=== PATIENT | female | born 1965 | race Caucasian/White ===

== ENCOUNTER → 2017-07-04 | Outpatient (CLI) | payer OTHER ==
[~2017-07-04] MED LIST: CHOL500045 PO; LEVO112T44 PO; LISI-362 PO; OMEP-125 PO
== END ==
LOC: LAB 08:45
PROVIDERS: ATTEND Nurse Practitioner Family
DX: R30.0 Dysuria (principal); R35.0 Frequency of micturition; R82.99 Other abnormal findings in urine
CPT/HCPCS: 81001; 87088

== ENCOUNTER → 2017-07-21 | Outpatient (REF) ==
[2017-07-21 09:42] LABS: LDL CHOLESTEROL 83 mg/dl
== END ==
DX: Z02.9 Encounter for administrative examinations, unspecified (principal)

== ENCOUNTER → 2017-08-21 | Outpatient (REF) | payer OTHER | PROVIDERS: ATTEND Family Medicine | DX: N39.0 Urinary tract infection, site not specified (principal) | CPT/HCPCS: 87088 ==

== ENCOUNTER → 2017-10-18 | Outpatient (REF) | payer OTHER | LOC: ZZSENDIN 16:51 | PROVIDERS: ATTEND Nurse Practitioner Family | DX: L82.1 Other seborrheic keratosis (principal) | CPT/HCPCS: 88305 ==

== ENCOUNTER → 2017-12-21 | Outpatient (CLI) | payer OTHER | LOC: LAB 09:49 | PROVIDERS: ATTEND Nurse Practitioner Family | DX: R35.0 Frequency of micturition (principal); R39.11 Hesitancy of micturition; R30.0 Dysuria; R82.79 Other abnormal findings on microbiological examination of urine | CPT/HCPCS: 81001; 87088 ==

== ENCOUNTER → 2018-01-03 | Outpatient (CLI) | payer OTHER ==
[~2018-01-03] MED LIST changes: +NITR-57 PO
--- NOTE | 2018-01-03 09:50 | RADIOLOGY IMAGING REPORT ---
FACILITY: [facility] [place] PATIENT NAME: Jeimy Apodaca : 1965 MR: [id number] V: [id number] EXAM DATE: ORDERING PHYSICIAN: CATARINA LANZA TECHNOLOGIST: Location: [facility] [place] Patient: Jeimy Apodaca : 1965 Visit/Account:[id number] Date of Sevice: 01/03/2018 KIDNEYS HISTORY: Frequent urinary tract infections COMPARISON: None. FINDINGS: Kidneys: Right kidney- 10.8 cm in length with normal parenchymal thickness and echogenicity. Resistive index is normal, 0.70. Left kidney- 10.9 cm in length with normal parenchymal thickness and echogenicity. Resistive index i s normal, 0.62. Uniform and symmetric blood flow in each kidney by Doppler ultrasound. Hydronephrosis: None. Bladder: Normal. Prevoid volume 529 mL, postvoid volume 31 mL.. Abdominal aorta and IVC: Patent by Doppler ultrasound. IMPRESSION: Normal renal ultrasound. Report Dictated By: Imtiaz Hernandez at 01/03/2018 9:44 AM Report E-Signed By: Imtiaz Hernandez at 01/03/2018 9:46 AM WSN:[email or web address]
== END ==
LOC: US 00:46
PROVIDERS: ATTEND Urology
DX: N39.0 Urinary tract infection, site not specified (principal)
CPT/HCPCS: 76705

== ENCOUNTER → 2018-01-18 | Outpatient (CLI) | payer OTHER ==
[2018-01-18 10:04] LABS: LDL CHOLESTEROL 91 mg/dl
== END ==
LOC: LAB 08:32
PROVIDERS: ATTEND Nurse Practitioner Family
DX: Z00.00 Encounter for general adult medical examination without abnormal findings (principal); N95.9 Unspecified menopausal and perimenopausal disorder; E55.9 Vitamin D deficiency, unspecified; R73.01 Impaired fasting glucose
CPT/HCPCS: 36415; 82040; 82247; 82306; 82310; 82374; 82435; 82465; 82565; 82607; 82670; 82947; 83001; 83036; 83718; 84075; 84132; 84155; 84295; 84403; 84443; 84450; 84460; 84478; 84520; 85027

== ENCOUNTER → 2018-01-19 | Outpatient (CLI) | payer OTHER ==
[~2018-01-19] MED LIST changes: +BARIUM SULFATE 176 GM BTL PO ONE; +BARIUM SULFATE 340 GM POWD ONE
--- NOTE | 2018-01-19 11:45 | RADIOLOGY IMAGING REPORT ---
FACILITY: [facility] PATIENT NAME: Jeimy Apodaca : 1965 MR: [id number] V: [id number] EXAM DATE: ORDERING PHYSICIAN: LAURY MCKEE TECHNOLOGIST: Location: [facility] Patient: Jeimy Apodaca : 1965 Visit/Account:[id number] Date of Sevice: 01/19/2018 ESOPHAGRAM HISTORY: Heartburn. Patient has been on Prilosec for 15 years. Food has gotten temporarily stuck s everal times COMPARISON: None. FINDINGS: Single and double contrast esophagram were performed. The esophagus is normal in appearance. There is no evidence of focal strictures or hiatal hernia. I was unable to demonstrate gastroesophageal re flux during the study despite utilizing provocative maneuvers. Barium tablet passed without hesitati on of the stomach Fluoroscopy time: 0.6 minutes Dose: DAP: 317 microGy-m2 IMPRESSION: Normal esophagram Report Dictated By: Sukumar Stanley MD at 01/19/2018 11:38 AM Report E-Signed By: Sukumar Stanley MD at 01/19/2018 11:41 AM WSN:[email or web address]
== END ==
LOC: RAD 01:30
PROVIDERS: ATTEND Surgery
DX: R13.10 Dysphagia, unspecified (principal)
CPT/HCPCS: 74220

== ENCOUNTER 2018-02-14 10:57 | Outpatient (RCR) | payer OTHER ==
[~2018-02-14 10:57] MED LIST changes: -BARIUM SULFATE 176 GM BTL PO ONE; -BARIUM SULFATE 340 GM POWD ONE
--- NOTE | 2018-02-20 10:46 | RADIOLOGY IMAGING REPORT ---
FACILITY: [facility] PATIENT NAME: Jeimy Apodaca : 1965 MR: [id number] V: [id number] EXAM DATE: ORDERING PHYSICIAN: CJ FARLEY TECHNOLOGIST: [facility] Patient: Jeimy Apodaca : 1965 Visit/Account:[id number] Date of Sevice: 02/20/2018 PELVIC HISTORY: Premenopausal interossea TECHNIQUE: Transvaginal and transabdominal ultrasound pelvis. COMPARISON: None. FINDINGS: Uterus: ; 11.9 cm length x 4.6 cm AP x 6.4 cm transverse. Myometrium: There is a 3.4 cm posterior fibroid. Endometrium: Unremarkable; double thickness 7.8 mm. Cervix: Nabothian cysts. Ovaries: Right - not visualized Left - not visualized Adnexa: Grossly unremarkable. Free pelvic fluid: None. IMPRESSION: There is a 3.4 cm posterior fibroid Nabothian cysts Neither ovary visualized Report Dictated By: Yin Mosher MD at 02/20/2018 10:38 AM Report E-Signed By: Yin Mosher MD at 02/20/2018 10:41 AM WSN:[email or web address]
== END 2018-02-20 18:00 | disposition home or self-care (01) ==
LOC: US 10:57
PROVIDERS: ATTEND Nurse Practitioner Family
DX: D25.9 Leiomyoma of uterus, unspecified (principal); N88.8 Other specified noninflammatory disorders of cervix uteri
CPT/HCPCS: 36415; 76856; 82728

== ENCOUNTER 2018-02-22 01:07 | Day surgery (SDC) | payer OTHER ==
[~2018-02-22] VITALS: Ht 179.1 cm; Wt 97.1 kg
[2018-02-22] MEDS ORDERED: PROPOFOL EMUL(*) 10MG/ML 20 ML 20 ML ONE ×2 (07:04→09:40)
[2018-02-22 09:24] VITALS: BP 155/85
[2018-02-22] MEDS ORDERED: NORMOSOL R SOLN(*) 1000 ML BAG 1,000 ML IV PRN (09:40)
[2018-02-22] MEDS ORDERED: LIDOCAINE/SOD BICARB 8.4% SYR ID ONE (09:40)
[2018-02-22 10:12] VITALS: BP 118/79
--- NOTE | 2018-02-22 10:16 | Short(Outpt) Discharge Summary ---
Discharge Summary Reason for Hosp/Final Diag: (1) GERD (gastroesophageal reflux disease) Status: Chronic Hospital Course & Plan: EGD and colonoscopy were completed without problems. (2) Colon cancer screening Status: Chronic Departure Discharge to: Home, Self Care Discharge Instructions Home Meds Reported Medications Cholecalciferol (Vitamin D3) (VITAMIN D) 5,000 Unit Tablet, 5000 UNIT PO QDAY 03/01/17 Omeprazole (OMEPRAZOLE) 20 Mg Capsule.dr, 1 CAP PO QDAY, CAP 03/01/17 Levothyroxine Sodium (SYNTHROID) 112 Mcg Tablet, 112 MCG PO QDAY, TAB 03/01/17 Diet: Regular Activity: As Tolerated Special Instructions: Your upper endoscopy and colonoscopy were completed without any problems and your bowel prep was excellent (Good Job!!). I didn't find any inflammation, ulcers, cancers, or precancerous lesions in your upper GI tract or your colon. These were normal. I recommend that you undergo another colonoscopy for screening in 10 years. Problem Qualifiers (1) GERD (gastroesophageal reflux disease): Esophagitis presence: without esophagitis Qualified Codes: K21.9 - Gastro- esophageal reflux disease without esophagitis LAURY MCKEE MD Feb 22, 2018 10:16
[2018-02-22 10:30] VITALS: BP 130/85
[2018-02-22 10:45] VITALS: BP 119/78
[2018-02-22 10:52] VITALS: BP 126/79
[2018-02-22 10:53] VITALS: BP 126/84
== END 2018-02-22 11:03 | disposition home or self-care (01) ==
LOC: OR 01:07
PROVIDERS: ATTEND Surgery
DX: Z12.11 Encounter for screening for malignant neoplasm of colon (principal); K21.9 Gastro-esophageal reflux disease without esophagitis
CPT/HCPCS: 00813; 43235; 81025; G0121; J2704

== ENCOUNTER → 2018-06-08 | Outpatient (REF) ==
[~2018-06-08] MED LIST changes: +CYAN500T38 PO; +FERR160T25 PO; +FLUC150T40 PO; +SENN-187 PO
[2018-06-08 10:06] LABS: LDL CHOLESTEROL 90 mg/dl
== END ==
DX: Z02.9 Encounter for administrative examinations, unspecified (principal)

== ENCOUNTER → 2018-06-08 | Outpatient (CLI) | payer OTHER | LOC: LAB 09:33 | PROVIDERS: ATTEND Nurse Practitioner Family | DX: R53.81 Other malaise (principal); E87.8 Other disorders of electrolyte and fluid balance, not elsewhere classified; D50.9 Iron deficiency anemia, unspecified | CPT/HCPCS: 82728 ==

== ENCOUNTER → 2018-06-20 | Outpatient (CLI) | payer OTHER ==
--- NOTE | 2018-06-29 08:23 | RADIOLOGY IMAGING REPORT ---
FACILITY: [facility] PATIENT NAME: CLARISSA MALIK : [id number] MR: [id number] V: [id number] EXAM DATE: [id number] ORDERING PHYSICIAN: CJ FARLEY TECHNOLOGIST: Yolie Barakat PROCEDURE:BILATERAL DIGITAL SCREENING MAMMOGRAM WITH CAD ASSISTED INTERPRETATION & 3D TOMOSYNTHESIS COMPARISON:Prior mammograms 12/16/16, 08/28/15, 07/11/14. INDICATIONS:screening FINDINGS: The breasts are heterogeneously dense which can obscure small masses. The previous bilateral breast implants have been removed sense the prior mammograms. There has been an overall slight increase in breast density when compared to the prior studies. There appears to be mild nipple retraction on the Right not appreciated previously. This could be related to postsurgical changes however Spot compression view is recommended. DIAGNOSTIC CATEGORY 0--INCOMPLETE: NEED ADDITIONAL IMAGING EVALUATION. RECOMMENDATIONS: ADDITIONAL MAMMOGRAPHIC VIEWS REQUIRED: RIGHT BREAST. IMPRESSION: BIRADS 0: Incomplete. Additional views of the Right breast recommended. Dictated by: Yin Mosher M.D. on 06/27/2018 at 15:35 Transcribed by: CHRISTIAN on 06/28/2018 at 8:19 Approved by: Yin Mosher M.D. on 06/29/2018 at 8:22 [facility]
== END ==
LOC: MAMO 01:06
PROVIDERS: ATTEND Nurse Practitioner Family
DX: R92.8 Other abnormal and inconclusive findings on diagnostic imaging of breast (principal)
CPT/HCPCS: 77063; 77067

== ENCOUNTER → 2018-07-06 | Outpatient (CLI) | payer OTHER ==
--- NOTE | 2018-07-07 11:27 | RADIOLOGY IMAGING REPORT ---
FACILITY: [facility] - [place], [place] PATIENT NAME: CLARISSA MALIK : [id number] MR: [id number] V: [id number] EXAM DATE: [id number] ORDERING PHYSICIAN: CJ FARLEY TECHNOLOGIST: Yolie Barakat PROCEDURE:RIGHT DIGITAL DIAGNOSTIC MAMMOGRAM WITH CAD ASSISTED INTERPRETATION & 3D TOMOSYNTHESIS COMPARISON:Prior mammograms dated 06/20/18 INDICATIONS:FURTHER EVAL FINDINGS: Patient returns for spot compression views in the Right CC & MLO projections. There appears to be less retraction in the Right retroareolar breast. By history the patient has a large amount of scar tissue from reconstructive surgery following implant removal which likely accounts for this finding. DIAGNOSTIC CATEGORY 2--BENIGN FINDING. RECOMMENDATIONS: ROUTINE MAMMOGRAM AND CLINICAL EVALUATION. IMPRESSION: BIRADS 2: Benign finding. There is less Right nipple retraction on the spot compression views. By history the patient has a large amount of scar tissue in this location which likely accounts for the finding. Dictated by: Yin Mosher M.D. on 07/06/2018 at 17:42 Transcribed by: QUIQUE on 07/07/2018 at 10:52 Approved by: Yin Mosher M.D. on 07/07/2018 at 11:26 [facility]
== END ==
LOC: MAMO 00:55
PROVIDERS: ATTEND Nurse Practitioner Family
DX: R92.8 Other abnormal and inconclusive findings on diagnostic imaging of breast (principal)
CPT/HCPCS: 77061; 77065

== ENCOUNTER → 2018-07-11 | Outpatient (CLI) | payer OTHER | LOC: US 01:26 | PROVIDERS: ATTEND Nurse Practitioner Family | DX: R07.89 Other chest pain (principal) | CPT/HCPCS: 93017; 93350 ==

== ENCOUNTER → 2018-07-28 | Outpatient (CLI) | payer OTHER ==
--- NOTE | 2018-07-28 18:22 | RADIOLOGY IMAGING REPORT ---
FACILITY: [facility] [place] PATIENT NAME: Jeimy Apodaca : 1965 MR: [id number] V: [id number] EXAM DATE: ORDERING PHYSICIAN: CJ FARLEY TECHNOLOGIST: Location: [facility] Patient: Jeimy Apodaca : 1965 Visit/Account:[id number] Date of Sevice: 07/28/2018 CHEST HISTORY: Palpable abnormality distal sternum Additional history: None COMPARISON: None. FINDINGS: Ultrasound over the area of concern the xiphoid process demonstrates a hypoechoic oval mass subjacent to the dermis which is wider than tall measuring 7 x 5 x 5 mm. There is a subtle tract which extends off the inferior margin of the lesion measuring 2 mm and also a subtle tract extending through the d ermis. This mass is avascular. IMPRESSION: The lesion discussed above probably represents a sebaceous cyst and other etiologies less likely. How ever, this should be correlated clinically. Report Dictated By: Sukumar Stanley MD at 07/28/2018 6:11 PM Report E-Signed By: Sukumar Stanley MD at 07/28/2018 6:18 PM WSN:[id number]
== END ==
LOC: US 01:35
PROVIDERS: ATTEND Nurse Practitioner Family
DX: N63.13 Unspecified lump in the right breast, lower outer quadrant (principal); R22.2 Localized swelling, mass and lump, trunk
CPT/HCPCS: 76604

== ENCOUNTER → 2018-08-17 | Outpatient (CLI) | payer OTHER ==
[~2018-08-17] MED LIST changes: -CYAN500T38 PO; +CYAN500T39 PO; +LOSA25TA57 PO; -OMEP-125 PO; +OMEP-126 PO
== END ==
LOC: LAB 13:34
PROVIDERS: ATTEND Obstetrics & Gynecology
DX: N95.1 Menopausal and female climacteric states (principal)
CPT/HCPCS: 36415; 83001

== ENCOUNTER → 2018-09-29 | Outpatient (CLI) | payer OTHER ==
[~2018-09-29] MED LIST changes: +ALPR-429 PO; +OMEP40CA48 PO; +RANI150C17 PO; +TRAN650T5 PO
== END ==
LOC: LAB 13:27
PROVIDERS: ATTEND Nurse Practitioner Family
DX: E03.9 Hypothyroidism, unspecified (principal)
CPT/HCPCS: 36415; 84443